=== PATIENT | female | born 1980 | race Two or more races ===

== ENCOUNTER 2023-07-25 21:09 | Emergency (ER) | payer OTHER ==
[~2023-07-25] VITALS: Ht 165.1 cm; Wt 78.9 kg
[2023-07-26] MEDS ORDERED: BENZONATATE 100 MG CAPSULE PO PRN (00:30)
[2023-07-26] MEDS ORDERED: GUAIFENESIN/D-METHORPHAN HB 5 ML UDC PO ONE (00:30)
[2023-07-26] MEDS ORDERED: BENZONATATE 100 MG CAPSULE PO ONE (00:37)
[2023-07-26] MEDS ORDERED: GUAIFENESIN/D-METHORPHAN HB 5 ML UDC ONE (00:37)
[2023-07-26] MEDS ORDERED: CODE15TA PO (01:08)
[2023-07-26] MEDS ORDERED: GUAI1TBM19 PO (01:08)
[2023-07-26] MEDS ORDERED: BENZ-13 PO (01:08)
[2023-07-26 01:37] VITALS: BP 126/86; TEMP 97.9; O2SAT 100
== END 2023-07-26 01:15 | disposition home or self-care (01) ==
LOC: ER 21:15
DX: R05.9 Cough, unspecified (principal); Z20.822 Contact with and (suspected) exposure to COVID-19; Z79.899 Other long term (current) drug therapy
CPT/HCPCS: 99284; 71045; 87426; 87804 ×2; C9803